=== PATIENT | male | born 1965 | race African-American/Black ===

== ENCOUNTER 2018-02-27 17:31 | Emergency (ER) | payer BC | END 2018-02-27 19:30 | disposition home or self-care (01) | LOC: ER 17:31 | DX: S46.911A Strain of unspecified muscle, fascia and tendon at shoulder and upper arm level, right arm, initial encounter (principal); E11.9 Type 2 diabetes mellitus without complications; I10 Essential (primary) hypertension; Z90.49 Acquired absence of other specified parts of digestive tract; W18.39XA Other fall on same level, initial encounter; Y93.89 Activity, other specified; Y92.89 Other specified places as the place of occurrence of the external cause; Y99.8 Other external cause status | CPT/HCPCS: 73060; 99284 ==

== ENCOUNTER → 2019-06-19 | Day surgery (SDC) | payer BC ==
[~2019-06-19] MED LIST: DULA0.75 SQ; GLIP5TAB10 PO; HYDROmorphone 2 MG/ML VIAL IV PRN; IV RINGERS,LACTATED 1000ML 1,000 ML IV SCH; LISI-130 PO; METF10007 PO; MORPHINE SULFATE 2 MG/ML VIAL. IV PRN; ONDANSETRON PF 4 MG/2 ML VIAL. IV PRN; PROCHLORPERAZINE 10 MG/2 ML VIAL. IV PRN; PROPOFOL 20 ML IV ONE; fentaNYL PF VIAL 100 MCG/2 ML VIAL IV PRN
[2019-06-19 08:42] VITALS: BP 146/68
--- NOTE | 2019-06-19 19:14 | CONS ---
DATE OF CONSULTATION: 06/19/2019 REFERRING PHYSICIAN: RACIEL Velásquez HISTORY OF PRESENT ILLNESS: A 53-year-old -Al[place]ian male, whose past medical history is significant for hypertension and diabetes, is seen for screening colon exam. Bowel habits are regular without diarrhea or constipation. There has been no melena and/or hematochezia. Weight and appetite are stable. He is otherwise without additional complaints. PAST MEDICAL HISTORY: Diabetes, hypertension. ALLERGIES: None. MEDICATIONS: Trulicity, glipizide, lisinopril, metformin. SOCIAL HISTORY: He is . He works at [employer]. FAMILY HISTORY: Unknown. He is adopted. PAST SURGICAL HISTORY: Significant for abdominal cellulitis. He is a nonsmoker, social drinker. REVIEW OF SYSTEMS: HEENT: There is no decrease in hearing or visual acuity issues. CARDIAC: History of hypertension. PULMONARY: No shortness of breath, productive cough, or asthma. RENAL: No dysuria, frequency, or hematuria. MUSCULOSKELETAL: No osteoarthrosis, arthralgias, or myalgias. ENDOCRINE: History of diabetes. HEMATOLOGIC: No bleeding, bruising, or coagulopathy. GASTROINTESTINAL: See history of present illness. NEUROLOGIC: No stroke or migraine. PSYCHIATRIC: No mood swings, depression, or insomnia. DERMATOLOGIC: No skin rashes or pruritus. PHYSICAL EXAMINATION: GENERAL: Reveals a well-nourished, well-developed male, who is alert and cooperative, in no acute distress. VITAL SIGNS: Temperature 97.6, pulse 98, respirations 20. HEENT: Normocephalic, atraumatic head. Pupils and extraocular muscles are not tested. Sclerae anicteric. NECK: Supple. LUNGS: Clear. CARDIOVASCULAR: Reveals S1, S2 without S3, S4 or appreciable murmur. ABDOMEN: Soft abdomen, normal bowel sounds without appreciable hepatosplenomegaly. EXTREMITIES: Reveals no cyanosis, clubbing, or edema. IMPRESSION: Colorectal screening. Risks and benefits of procedure including risk of hemorrhage and perforation have been discussed. The patient is willing to proceed. I would like to thank Priscila Britt for allowing us to consult and participate in this patient's care. ELIZABETH HINTON MD DR: FARIBA/sherman JOB#: [id number] / [id number]
== END ==
LOC: ENDOS 07:21
PROVIDERS: ATTEND Internal Medicine Gastroenterology
DX: Z12.11 Encounter for screening for malignant neoplasm of colon (principal); K57.30 Diverticulosis of large intestine without perforation or abscess without bleeding; K64.0 First degree hemorrhoids; E11.9 Type 2 diabetes mellitus without complications; I10 Essential (primary) hypertension; Z72.89 Other problems related to lifestyle; Z79.84 Long term (current) use of oral hypoglycemic drugs
CPT/HCPCS: 45378; 82962; J2704

== ENCOUNTER 2019-08-20 09:30 | Day surgery (SDC) | payer BC ==
[~2019-08-20] VITALS: Ht 177.8 cm; Wt 100.7 kg
[~2019-08-20 09:30] MED LIST changes: +ACETAMINOPHEN 500 MG TABLET PO PRN; +BUPIVACAINE-EPI 0.25%-1:200000 MPF 30 ML VIAL. INJ ONE; +DEXAMETHASONE SOD PHOS 20 MG/5 ML VIAL. ONE; +DEXAMETHASONE SOD PHOS 4 MG/ML VIAL ONE; +LIDOCAINE 1% PF 2 ML VIAL. ID PRN; +LIDOCAINE 2% PF 5 ML VIAL. ONE; +MIDAZOLAM HCL/PF 2 MG/2 ML VIAL. ONE; +ONDANSETRON PF 4 MG/2 ML VIAL. ONE; +ROCURONIUM 50 MG/5 ML VIAL. ONE; +ceFAZolin 2GM PREMIX 2 GM/50 ML BAG IV ONE; +fentaNYL PF VIAL 100 MCG/2 ML VIAL ONE
[2019-08-20] MEDS ORDERED: INSULIN LISPRO 100 UNIT/ML 3ML VIAL for OP,RR ONLY. SQ PRN (10:15)
[2019-08-20] MEDS ORDERED: fentaNYL PF VIAL 100 MCG/2 ML VIAL ONE ×2 (10:54→12:47)
[2019-08-20] MEDS ORDERED: ROCURONIUM 50 MG/5 ML VIAL. ONE (11:30)
[2019-08-20] MEDS ORDERED: NEOSTIGMINE METHYLSULFATE 5 MG/5 ML SYRINGE. ONE (11:31)
[2019-08-20] MEDS ORDERED: KETOROLAC 30 MG/ML VIAL. ONE (11:32)
[2019-08-20] MEDS ORDERED: GLYCOPYRROLATE 1 MG/5 ML VIAL. ONE (11:32)
[2019-08-20] MEDS ORDERED: BUPIVACAINE MPF 0.5% 30 ML VIAL. ONE (12:20)
[2019-08-20] MEDS ORDERED: DEXAMETHASONE SOD PHOS 20 MG/5 ML VIAL. ONE (12:20)
[2019-08-20] MEDS ORDERED: EPINEPHrine 1 MG/ML VIAL ONE (12:21)
[2019-08-20] MEDS ORDERED: SEVOFLURANE > 120 MINUTES. IH ONE (12:50)
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
--- NOTE | 2019-08-20 13:28 | DISCH ---
DISCHARGE INSTRUCTIONS Condition on Discharge Condition on Discharge: Stable Activity After Discharge Activity Instructions for Disc: Avoid exertion Other activity instructions: no lifting more than 20 pounds for 2 weeks Diet after Discharge Diet after Discharge: Regular Wound Incision Care Other wound/incision instructi: May shower in 24 hours Contacting the DRGriselda after DC Call your doctor for: If your condition worsens Follow-Up Follow up with: Dr. Baxter in 2 weeks BRENTON BAXTER MD Aug 20, 2019 13:28
[2019-08-20] MEDS: fentaNYL PF VIAL 100 MCG/2 ML VIAL IV PRN ×2 (14:39→14:46)
[2019-08-20] MEDS ORDERED: oxyCODONE/APAP 5/325 1 TAB TABLET PO ONE (14:45)
[2019-08-20 15:02] VITALS: BP 168/86
== END 2019-08-20 15:30 ==
LOC: EDSEX → SURG 09:30
PROVIDERS: ATTEND Surgery
DX: K43.2 Incisional hernia without obstruction or gangrene (principal); Z79.899 Other long term (current) drug therapy
CPT/HCPCS: 49654; 82962; A7015; C1781; J0171; J0696; J1100; J1885; J2001; J2250; J2270; J2405; J2704; J2710; J3010; J3490

== ENCOUNTER 2019-09-05 08:10 | Emergency (ER) | payer BC ==
[~2019-09-05] VITALS: Ht 180.3 cm; Wt 98.9 kg
[~2019-09-05 08:10] MED LIST changes: -ACETAMINOPHEN 500 MG TABLET PO PRN; -BUPIVACAINE-EPI 0.25%-1:200000 MPF 30 ML VIAL. INJ ONE; -DEXAMETHASONE SOD PHOS 20 MG/5 ML VIAL. ONE; -DEXAMETHASONE SOD PHOS 4 MG/ML VIAL ONE; -HYDROmorphone 2 MG/ML VIAL IV PRN; -IV RINGERS,LACTATED 1000ML 1,000 ML IV SCH; -LIDOCAINE 1% PF 2 ML VIAL. ID PRN; -LIDOCAINE 2% PF 5 ML VIAL. ONE; -MIDAZOLAM HCL/PF 2 MG/2 ML VIAL. ONE; -MORPHINE SULFATE 2 MG/ML VIAL. IV PRN; -ONDANSETRON PF 4 MG/2 ML VIAL. IV PRN; -ONDANSETRON PF 4 MG/2 ML VIAL. ONE; -PROCHLORPERAZINE 10 MG/2 ML VIAL. IV PRN; -PROPOFOL 20 ML IV ONE; -ROCURONIUM 50 MG/5 ML VIAL. ONE; -ceFAZolin 2GM PREMIX 2 GM/50 ML BAG IV ONE; -fentaNYL PF VIAL 100 MCG/2 ML VIAL IV PRN; -fentaNYL PF VIAL 100 MCG/2 ML VIAL ONE
[2019-09-05] MEDS: diphenhydrAMINE 50 MG/ML VIAL IV ONE (08:20)
[2019-09-05] MEDS: FAMOTIDINE 20 MG/2 ML VIAL IVP ONE (08:22)
[2019-09-05] MEDS: methylPREDNISolone SOD SUCC PF 125 MG/2 ML VIAL. IV ONE (08:25)
[2019-09-05] MEDS: IV NORMAL SALINE 500ML BAG 500 ML IV ONE (08:26)
--- NOTE | 2019-09-05 08:41 | PHYS DOC ---
Past Medical History Past Medical History: Diabetes-Type II, Hypertension Past Surgical History: Other Additional Past Surgical Histo: colectomy, HERNIA Alcohol Use: Occasionally Drug Use: None Adult General Chief Complaint Chief Complaint: ALLERGIC REACTION HPI HPI Patient is a 53 year old male who presents with complaining of tongue swelling. Patient states he woke up about an hour ago and had left side of his tongue edema without shortness of breath, swallowing problem, rash, fever and chills, focal neuro deficit, history of the same problem. Patient denies using new medication or food. Patient currently taking lisinopril 40 mg daily for the last years without problem. Review of Systems Review of Systems Constitutional: Denies fever or chills [] Eyes: Denies change in visual acuity, redness, or eye pain [] HENT: Denies nasal congestion or sore throat [] Respiratory: Denies cough or shortness of breath [] Cardiovascular: No additional information not addressed in HPI [] GI: Denies abdominal pain, nausea, vomiting, bloody stools or diarrhea [] : Denies dysuria or hematuria [] Musculoskeletal: Denies back pain or joint pain [] Integument: Denies rash or skin lesions [] Neurologic: Denies headache, focal weakness or sensory changes [] Endocrine: Denies polyuria or polydipsia [] All other systems were reviewed and found to be within normal limits, except as documented in this note. Current Medications Current Medications Current Medications Medications (Trade) Dose Ordered Sig/Abram Start Time Stop Time Status Last Admin Dose Admin Diphenhydramine HCl (Benadryl) 50 mg 1X ONCE 09/05/19 08:30 09/05/19 08:31 DC 09/05/19 08:20 50 MG Famotidine (Pepcid Vial) 20 mg 1X ONCE 09/05/19 08:30 09/05/19 08:31 DC 09/05/19 08:22 20 MG Methylprednisolone Sodium Succinate (SOLU-Medrol 125MG VIAL) 125 mg 1X ONCE 09/05/19 08:30 09/05/19 08:31 DC 09/05/19 08:25 125 MG Sodium Chloride 500 ml @ 500 mls/hr 1X ONCE 09/05/19 08:30 09/05/19 09:29 DC 09/05/19 08:26 500 MLS/HR Allergies Allergies Allergies Coded Allergies Type Severity Reaction Last Updated Verified No Known Drug Allergies 08/18/19 No Physical Exam Physical Exam Constitutional: Well developed, well nourished, mild distress, non-toxic appearance. [] HENT: Normocephalic, atraumatic, bilateral external ears normal, oropharynx moist, mild edema left side of lower lip, left tongue moderate edema, no uvular edema, no oral exudates, nose normal. [] Eyes: PERRLA, EOMI, conjunctiva normal, no discharge. [] Neck: Normal range of motion, no tenderness, supple, no stridor. [] Cardiovascular:Heart rate regular rhythm, no murmur [] Lungs & Thorax: Bilateral breath sounds clear to auscultation [] Skin: Warm, dry, no erythema, no rash. [] Back: No tenderness, no CVA tenderness. [] Extremities: ROM intact, no edema. [] Neurologic: Alert and oriented X 3, no focal deficits noted. [] Psychologic: Affect normal, judgement normal, mood normal. [] Current Patient Data Vital Signs Vital Signs Date Time Temp Pulse Resp B/P (MAP) Pulse Ox O2 Delivery O2 Flow Rate FiO2 09/05/19 09:30 100 135/78 (97) 99 09/05/19 09:02 18 Room Air 09/05/19 08:21 99.4 99.4 Lab Values Laboratory Tests Test 09/05/19 08:21 White Blood Count 7.8 x10^3/uL (4.0-11.0) Red Blood Count 4.51 x10^6/uL (4.30-5.70) Hemoglobin 13.9 g/dL (13.0-17.5) Hematocrit 40.1 % (39.0-53.0) Mean Corpuscular Volume 89 fL (79-100) Mean Corpuscular Hemoglobin 31 pg (25-35) Mean Corpuscular Hemoglobin Concent 35 g/dL (31-37) Red Cell Distribution Width 12.5 % (11.5-14.5) Platelet Count 282 x10^3/uL (140-400) Neutrophils (%) (Auto) 50 % (31-73) Lymphocytes (%) (Auto) 35 % (24-48) Monocytes (%) (Auto) 12 % (0-9) H Eosinophils (%) (Auto) 3 % (0-3) Basophils (%) (Auto) 1 % (0-3) Neutrophils # (Auto) 3.9 x10^3/uL (1.8-7.7) Lymphocytes # (Auto) 2.7 x10^3/uL (1.0-4.8) Monocytes # (Auto) 0.9 x10^3/uL (0.0-1.1) Eosinophils # (Auto) 0.2 x10^3/uL (0.0-0.7) Basophils # (Auto) 0.0 x10^3/uL (0.0-0.2) Sodium Level 139 mmol/L (136-145) Potassium Level 4.3 mmol/L (3.5-5.1) Chloride Level 100 mmol/L (98-107) Carbon Dioxide Level 29 mmol/L (21-32) Anion Gap 10 (6-14) Blood Urea Nitrogen 16 mg/dL (8-26) Creatinine 1.0 mg/dL (0.7-1.3) Estimated GFR (Cockcroft-Gault) 94.6 BUN/Creatinine Ratio 16 (6-20) Glucose Level 172 mg/dL (70-99) H Calcium Level 9.3 mg/dL (8.5-10.1) Total Bilirubin 0.3 mg/dL (0.2-1.0) Aspartate Amino Transferase (AST) 14 U/L (15-37) L Alanine Aminotransferase (ALT) 31 U/L (16-63) Alkaline Phosphatase 97 U/L (46-116) Total Protein 7.5 g/dL (6.4-8.2) Albumin 3.6 g/dL (3.4-5.0) Albumin/Globulin Ratio 0.9 (1.0-1.7) L Laboratory Tests 09/05/19 08:21 Laboratory Tests 09/05/19 08:21 EKG EKG [] Radiology/Procedures Radiology/Procedures [] Course & Med Decision Making Course & Med Decision Making Pertinent Labs reviewed. (See chart for details) Evaluation of patient in ER showed 53-year-old male patient with angioedema without shortness of breath or problems swallowing and history of using lis inopril for several years. Patient treated with IV fluid, Benadryl, Pepcid and Solu-Medrol with partial improvement of his condition. Patient had a stable vital signs and O2 sat. Labs was unremarkable except for mild elevation of blood sugar of 172. Patient was advised to stop taking lisinopril and prescription for amlodipine and hydroxyzine was given. I've spoken with the patient and/or caregivers. I've explained the patient's condition, diagnosis and treatment plan based on information available to me at this time. I've answered the patient's and/or caregivers questions and addressed any concerns. The patient and/or caregivers have a good understanding the patient's diagnosis, condition and treatment plan as can be expected at this point. Vital signs have been stabilized. The patient's condition is stable for discharge from the emergency department. The patient will pursue further outpatient evaluation with her primary care provider or other designated consulting physician as outlined in the discharge instructions. Patient and/or caregivers are agreeable to this plan of care and follow-up instructions have been explained in detail. The patient and/or caregivers have received these instructions in written format and expressed understanding of these discharge instructions. The patient and her caregivers are aware that if any significant change in condition or worsening of symptoms should prompt him to immediately return to this of the closest emergency de partment. If an emergent department is not readily available I would encourage him to call 911. Jhonon Disclaimer Dragon Disclaimer This electronic medical record was generated, in whole or in part, using a voice recognition dictation system. Departure Departure Impression: Primary Impression: NEELIMA inhibitor-aggravated angioedema Disposition: HOME, SELF-CARE (at 0 [phone]) Condition: IMPROVED Referrals: VICTORINO PLATA APRN (PCP) Patient Instructions: Angioedema Additional Instructions: Stop taking lisinopril Follow-up with your primary care physician in 3-5 days Return to ER if not getting better Scripts Amlodipine Besylate (AMLODIPINE BESYLATE) 10 Mg Tablet 10 MG PO DAILY for 30 Days, #30 TAB Prov: DEWAYNE DAY MD 09/05/19 Hydroxyzine Hcl (HYDROXYZINE HCL) 25 Mg Tablet 1 TAB PO TID PRN for itching, #30 TAB Prov: DEWAYNE DAY MD 09/05/19 Problem Qualifiers Primary Impression: NEELIMA inhibitor-aggravated angioedema Encounter type: initial encounter Qualified Codes: T78.3XXA - Angioneurotic edema, initial encounter; T46.4X5A - Adverse effect of wxgovdusnpd-oejnvqgoyz-rimjho inhibitors, initial encounter DEWAYNE DAY MD Sep 05, 2019 08:41
[2019-09-05 08:45] LABS: BASO % 1 % (0-3); EOS # 0.2 x10^3/uL (0.0-0.7); EOS % 3 % (0-3); HEMATOCRIT 40.1 % (39.0-53.0); HEMOGLOBIN 13.9 g/dL (13.0-17.5); LYMPH # 2.7 x10^3/uL (1.0-4.8); LYMPH % 35 % (24-48); MEAN CORPUSCULAR HEMOGLOBIN 31 pg (25-35); MEAN CORPUSCULAR HGB CONC 35 g/dL (31-37); MEAN CORPUSCULAR VOLUME 89 fL (79-100); MONO # 0.9 x10^3/uL (0.0-1.1); MONO % 12 % (0-9); NEUT # 3.9 x10^3/uL (1.8-7.7); NEUT % 50 % (31-73); PLATELET COUNT 282 x10^3/uL (140-400); RED BLOOD COUNT 4.51 x10^6/uL (4.30-5.70); RED CELL DISTRIBUTION WIDTH 12.5 % (11.5-14.5); WHITE BLOOD COUNT 7.8 x10^3/uL (4.0-11.0)
[2019-09-05 08:51] LABS: CALCIUM 9.3 mg/dL (8.5-10.1); GFR 94.6; POTASSIUM 4.3 mmol/L (3.5-5.1)
[2019-09-05 08:56] LABS: ALBUMIN 3.6 g/dL (3.4-5.0); ALBUMIN/GLOBULIN RATIO 0.9 (1.0-1.7); TOTAL BILIRUBIN 0.3 mg/dL (0.2-1.0); TOTAL PROTEIN 7.5 g/dL (6.4-8.2)
[2019-09-05 09:30] VITALS: BP 135/78
[2019-09-05] MEDS ORDERED: AMLO10TA8 PO (09:36)
[2019-09-05] MEDS ORDERED: HYDR25TA PO (09:36)
[2019-09-05] MEDS ORDERED: FAMOTIDINE 20 MG/2 ML VIAL ONE (15:04)
[2019-09-05] MEDS ORDERED: methylPREDNISolone SOD SUCC PF 125 MG/2 ML VIAL. ONE (15:04)
[2019-09-05] MEDS ORDERED: diphenhydrAMINE 50 MG/ML VIAL ONE (15:04)
== END 2019-09-05 09:40 | disposition home or self-care (01) ==
LOC: ER 08:10
DX: T78.3XXA Angioneurotic edema, initial encounter (principal); T46.4X5A Adverse effect of angiotensin-converting-enzyme inhibitors, initial encounter; E11.9 Type 2 diabetes mellitus without complications; I10 Essential (primary) hypertension; Z90.49 Acquired absence of other specified parts of digestive tract; Z98.890 Other specified postprocedural states; Y65.8 Other specified misadventures during surgical and medical care; Y92.89 Other specified places as the place of occurrence of the external cause
CPT/HCPCS: 36415; 80053; 85025; 96374; 96375; J1200; J2930; J3490; J7040; 99284-25

== ENCOUNTER → 2019-12-10 | Outpatient (CLI) | payer BC ==
[~2019-12-10] MED LIST changes: +AMLO10TA8 PO; +HYDR25TA PO
--- NOTE | 2019-12-11 08:19 | CARD ---
MR#: [id number] Date of Study: 12/10/2019 Ordering Physician: MARISOL WISE, Referring Physician: MARISOL WISE, Tech: Tracey Summers APPROVED REPORT EXAM: Two-dimensional and M-mode echocardiogram with Doppler and color Doppler. Other Information Quality : AverageHR: 85bpm INDICATION Murmur RISK FACTORS Hypertension Diabetes 2D DIMENSIONS RVDd3.7 (2.9-3.5cm)Left Atrium(2D)4.1 (1.6-4.0cm) IVSd1.2 (0.7-1.1cm)Aortic Root(2D)3.1 (2.0-3.7cm) LVDd5.4 (3.9-5.9cm)LVOT Diameter2.1 (1.8-2.4cm) PWd1.1 (0.7-1.1cm)LVDs4.4 (2.5-4.0cm) FS (%) 17.6 %SV50.4 ml LVEF(%)36.3 (>50%) Aortic Valve AoV Peak Pardeep.197.5cm/sAoV VTI38.4cm AO Peak GR.15.6mmHgLVOT Peak Pardeep.90.1cm/s LVOT VTI 18.13cmAO Mean GR.9mmHg ALEXSANDER (VMAX)1.37zb2AYR (VTI)1.68cm2 Mitral Valve MV E Bcwckmnk86.2cm/sMV DECEL KBDY125fg MV A Zhfdkpwg15.9cm/sMV E Mean Gr.3mmHg MV GMW20zjE/A Ratio1.3 MVA (PHT)4.22cm2 TDI E/Lateral E'8.8E/Medial E'13.3 Pulmonary Valve PV Peak Mphndksq900.1cm/sPV Peak Grad.4mmHg Tricuspid Valve TR P. Lfhsqfue733uy/sRAP HMUDKKBC3knIn TR Peak Gr.21veIvMFCB33ulSl Pulmonary Vein S1 Ufzrpcgd37.6cm/sD2 Cbpmjjae86.8cm/s LEFT VENTRICLE The left ventricle is normal size. There is mild concentric left ventricular hypertrophy. The left ve ntricular systolic function is normal. The Ejection Fraction is 50-55%. There is normal LV segmental wall motion. RIGHT VENTRICLE The right ventricle is normal size. There is normal right ventricular wall thickness. The right ventr icular systolic function is normal. ATRIA The left atrium size is normal. The right atrium size is normal. The interatrial septum is intact wit h no evidence for an atrial septal defect or patent foramen ovale as noted on 2-D or Doppler imaging. AORTIC VALVE The aortic valve is calcified but opens well. Doppler and Color Flow revealed trace aortic regurgitat ion. Calculated aortic valve area is 2.02 cm2 with maximum pressure gradient of 20 mmHg and mean pres sure gradient of 10 mmHg. MITRAL VALVE The mitral valve is normal in structure and function. There is no evidence of mitral valve prolapse. There is no mitral valve stenosis. Doppler and Color Flow revealed no mitral valve regurgitation note d. TRICUSPID VALVE The tricuspid valve is normal in structure and function. Doppler and Color Flow revealed trace tricus pid regurgitation with an estimated PAP of 31 mmHg. There is no tricuspid valve stenosis. PULMONIC VALVE The pulmonic valve is not well visualized. Doppler and Color Flow revealed trace pulmonic valvular re gurgitation. GREAT VESSELS The aortic root is normal in size. The IVC was not visualized. PERICARDIAL EFFUSION There is no evidence of significant pericardial effusion. Critical Notification Critical Value: No <Conclusion> The left ventricular systolic function is normal. The Ejection Fraction is 50-55%. There is normal LV segmental wall motion. Trace tricuspid regurgitation with an estimated PAP of 31 mmHg. There is no evidence of significant pericardial effusion. Signed by : Shaun Her, Electronically Approved : 12/11/2019 08:18:26
== END | disposition home or self-care (01) ==
LOC: ECHO 15:19
PROVIDERS: ATTEND Internal Medicine Cardiovascular Disease
DX: I35.8 Other nonrheumatic aortic valve disorders (principal); I51.7 Cardiomegaly
CPT/HCPCS: 93306

== ENCOUNTER 2021-01-05 17:31 | Emergency (ER) | payer OTHER, BC ==
[~2021-01-05] VITALS: Ht 180.3 cm; Wt 105.0 kg
[~2021-01-05 17:31] MED LIST changes: +AMLO-187 PO; -AMLO10TA8 PO
[2021-01-05 18:00] VITALS: BP 167/89
[2021-01-05] MEDS ORDERED: LIDOCAINE/EPI/TETRACAINE TOPICAL GEL 3 ML. TP ONE (18:00)
[2021-01-05] MEDS ORDERED: DIPH,PERTUSS(ACELL),TET VAC/PF 0.5 ML SYRINGE. VAX IM ONE (18:30)
--- NOTE | 2021-01-05 18:51 | PHYS DOC ---
Past Medical History Past Medical History: Diabetes-Type II, Hypertension Past Surgical History: Other Additional Past Surgical Histo: colectomy, HERNIA Smoking Status: Never Smoker Alcohol Use: Occasionally Drug Use: None General Adult EDM: Chief Complaint: HEAD INJURY/TRAUMA HPI: HPI: Patient is a 55 year old male who presents with scalp laceration. 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 He states he hit his head on a metal cabinet above his head. Denies any loss of consciousness. He denies any neck pain. Review of Systems: Review of Systems: Constitutional: Denies fever or chills. [] Eyes: Denies change in visual acuity. [] HENT: Denies nasal congestion or sore throat. [] Respiratory: Denies cough or shortness of breath. [] Cardiovascular: Denies chest pain or edema. [] GI: Denies abdominal pain, nausea, vomiting, bloody stools or diarrhea. [] : Denies dysuria. [] Musculoskeletal: Denies back pain or joint pain. [] Integument: Reports scalp laceration Neurologic: Denies headache, focal weakness or sensory changes. [] Psychiatric: Denies depression or anxiety. [] Heart Score: Risk Factors: Risk Factors: DM, Current or recent (<one month) smoker, HTN, HLP, family history of CAD, obesity. Risk Scores: Score 0 - 3: 2.5% MACE over next 6 weeks - Discharge Home Score 4 - 6: 20.3% MACE over next 6 weeks - Admit for Clinical Observation Score 7 - 10: 72.7% MACE over next 6 weeks - Early Invasive Strategies Current Medications: Current Medications Medications (Trade) Dose Ordered Sig/Abram Start Time Stop Time Status Last Admin Dose Admin Diphtheria/ Tetanus/Acell Pertussis (ADACEL TDap SYRINGE) 0.5 ml ONCE ONCE 01/05/21 18:30 01/05/21 18:31 DC 01/05/21 18:34 0.5 ML Tetracaine/ Epinephrine/ Lidocaine (Let (Jgqy-Tkevhci-Mdmev) Gel) 3 ml 1X ONCE 01/05/21 18:00 01/05/21 18:01 DC 01/05/21 18:06 3 ML Allergies: Allergies: Allergies Coded Allergies Type Severity Reaction Last Updated Verified No Known Drug Allergies 08/18/19 No Physical Exam: PE: Constitutional: Well developed, well nourished, no acute distress, non-toxic appearance. [] HENT: Normocephalic, atraumatic, bilateral external ears normal, oropharynx moist, no oral exudates, nose normal. [] Eyes: PERRLA, EOMI, conjunctiva normal, no discharge. [] Neck: Normal range of motion, no tenderness, supple, no stridor. [] Cardiovascular:Heart rate regular rhythm, no murmur [] Lungs & Thorax: Bilateral breath sounds clear to auscultation [] Abdomen: Bowel sounds normal, soft, no tenderness, no masses, no pulsatile masses. [] Skin: Right forehead with a laceration approximately 3 cm long. Back: No tenderness, no CVA tenderness. [] Extremities: No tenderness, no cyanosis, no clubbing, ROM intact, no edema. [] Neurologic: Alert and oriented X 3, normal motor function, normal sensory function, no focal deficits noted. Cranial nerves II through XII intact Psychologic: Affect normal, judgement normal, mood normal. [] Current Patient Data: Vital Signs: Vital Signs Date Time Temp Pulse Resp B/P (MAP) Pulse Ox O2 Delivery O2 Flow Rate FiO2 01/05/21 18:00 97.7 89 18 167/89 (115) 99 Room Air 97.7 EKG: EKG: [] Radiology/Procedures: Radiology/Procedures: Laceration/Wound Repair Laceration/Wound Repair : [] Wound Location: Right forehead laceration Wound's Depth, Shape: V Wound Length (cm): Approximately 2 cm Wound Explored: clean Irrigated w/ Saline (ccs): 20 Betadine Prep?: Not applicable Anesthesia: Let solution Volume Anesthetic (ccs): 3 cc Wound Repaired With: 4 kaleigh Progress wound was left open to back Course & Med Decision Making: Course & Med Decision Making Pertinent Labs and Imaging studies reviewed. (See chart for details) This is a 55-year-old male patient presenting to the ED today with scalp laceration that was closed with 4 kaleigh by me. Wound care instructions and return precautions provided. Tetanus updated in the ED. Eugenia Disclaimer: Eugenia Disclaimer: This electronic medical record was generated, in whole or in part, using a voice recognition dictation system. Departure Departure Impression: Primary Impression: Laceration of scalp Qualified Codes: S01.01XA - Laceration without foreign body of scalp, initial encounter Disposition: 01 DC HOME SELF CARE/HOMELESS Condition: STABLE Referrals: JAZMIN SOTOMAYOR MD (PCP) Follow-up with the ED or your own doctor in 7 to 10 days for staple removal Patient Instructions: Laceration Care, Adult, Xvsh-lf-Lqgl Additional Instructions: You have scalp laceration that was closed with kaleigh. You can shower and wash your hair including the laceration site starting tomorrow. Please apply Neosporin over the laceration site twice a day for 1 week. Come back to the ED or see your own doctor in 7 to 10 days for staple removal. Monitor the area for signs of infection including but not limited to increased redness, warmth, yellow drainage from the area and return to the ED if they occur KOBY CRUZ APRN Jan 05, 2021 18:51
== END 2021-01-05 19:10 | disposition home or self-care (01) ==
LOC: ER 17:31
DX: S01.01XA Laceration without foreign body of scalp, initial encounter (principal); E11.9 Type 2 diabetes mellitus without complications; I10 Essential (primary) hypertension; W22.09XA Striking against other stationary object, initial encounter; Y93.89 Activity, other specified; Y92.89 Other specified places as the place of occurrence of the external cause; Y99.8 Other external cause status
CPT/HCPCS: 12013; 90471; 90715; 99283

== ENCOUNTER 2021-01-13 16:20 | Emergency (ER) | payer OTHER, BC ==
[~2021-01-13] VITALS: Ht 180.3 cm; Wt 100.0 kg
[2021-01-13 16:46] VITALS: BP 160/87
--- NOTE | 2021-01-13 16:52 | PHYS DOC ---
Past Medical History Past Medical History: Diabetes-Type II, Hypertension Past Surgical History: Other Additional Past Surgical Histo: colectomy, HERNIA Smoking Status: Never Smoker Alcohol Use: Occasionally Drug Use: None General Adult EDM: Chief Complaint: SUTURE/STAPLE REMOVAL HPI: HPI: Patient is a 55 year old male who presents with on January 05 patient was at work when he had his head on a metal cabinet causing him a laceration to his right upper forehead scalp area. He received 4 efrain. Patient is here today for staple removal. He has a history of diabetes, hypertension, hernia, colectomy. He denies any pain, drainage from the incision or signs of in fection. Review of Systems: Review of Systems: Constitutional: Denies fever or chills. [] Eyes: Denies change in visual acuity. [] HENT: Denies nasal congestion or sore throat. [] Respiratory: Denies cough or shortness of breath. [] Cardiovascular: Denies chest pain or edema. [] GI: Denies abdominal pain, nausea, vomiting, bloody stools or diarrhea. [] : Denies dysuria. [] Musculoskeletal: Denies back pain or joint pain. [] Integument: Denies rash. +Efrain to healing right forehead laceration [] Neurologic: Denies headache, focal weakness or sensory changes. [] Endocrine: Denies polyuria or polydipsia. [] Lymphatic: Denies swollen glands. [] Psychiatric: Denies depression or anxiety. [] Heart Score: Risk Factors: Risk Factors: DM, Current or recent (<one month) smoker, HTN, HLP, family history of CAD, obesity. Risk Scores: Score 0 - 3: 2.5% MACE over next 6 weeks - Discharge Home Score 4 - 6: 20.3% MACE over next 6 weeks - Admit for Clinical Observation Score 7 - 10: 72.7% MACE over next 6 weeks - Early Invasive Strategies Allergies: Allergies: Allergies Coded Allergies Type Severity Reaction Last Updated Verified No Known Drug Allergies 08/18/19 No Physical Exam: PE: Constitutional: Well developed, well nourished, no acute distress, non-toxic appearance. [] HENT: Normocephalic, atraumatic, bilateral external ears normal, oropharynx moist, no oral exudates, nose normal. [] Eyes: PERRLA, EOMI, conjunctiva normal, no discharge. [] Neck: Normal range of motion, no tenderness, supple, no stridor. [] Cardiovascular:Heart rate regular rhythm, no murmur [] Lungs & Thorax: Bilateral breath sounds clear to auscultation [] Abdomen: Bowel sounds normal, soft, no tenderness, no masses, no pulsatile masses. [] Skin: Warm, dry, no erythema, no rash. Healed right forehead scalp laceration that is scabbed over [] Back: No tenderness, no CVA tenderness. [] Extremities: No tenderness, no cyanosis, no clubbing, ROM intact, no edema. [] Neurologic: Alert and oriented X 3, normal motor function, normal sensory function, no focal deficits noted. [] Psychologic: Affect normal, judgement normal, mood normal. [] EKG: EKG: [] Radiology/Procedures: Radiology/Procedures: [] Course & Med Decision Making: Course & Med Decision Making Pertinent Labs and Imaging studies reviewed. (See chart for details) See HPI. Alert and oriented x4. Speaks in full complete sentences. Skin pink warm and dry. Edges are approximated and healed together. There is no signs of infection. No drainage, redness, tenderness, swelling. He is afebrile. 4 efrain removed from scalp by RN. [] Eugenia Disclaimer: Eugenia Disclaimer: This electronic medical record was generated, in whole or in part, using a voice recognition dictation system. Departure Departure Impression: Primary Impression: Visit for suture removal Disposition: 01 [place] HOME SELF CARE/HOMELESS Condition: STABLE Referrals: JAZMIN SOTOMAYOR MD (PCP) Patient Instructions: Suture Removal Additional Instructions: Follow-up with a primary care provider if needed. Can use Neosporin on antibiotic ointment over the area to help healing. YEN ROMERO APRN Jan 13, 2021 16:52
== END 2021-01-13 17:05 | disposition home or self-care (01) ==
LOC: ER 16:20
DX: S01.01XD Laceration without foreign body of scalp, subsequent encounter (principal); E11.9 Type 2 diabetes mellitus without complications; I10 Essential (primary) hypertension; X58.XXXD Exposure to other specified factors, subsequent encounter
CPT/HCPCS: 99281

== ENCOUNTER 2021-05-22 17:39 | Emergency (ER) | payer BC, OTHER ==
[~2021-05-22] VITALS: Ht 180.3 cm; Wt 105.0 kg
--- NOTE | 2021-05-22 18:56 | PHYS DOC ---
Past Medical History Past Medical History: Diabetes-Type II, Hypertension Past Surgical History: No Surgical History, Other Additional Past Surgical Histo: ABDOMINAL RESECTION Smoking Status: Never Smoker Alcohol Use: Occasionally Drug Use: None General Adult EDM: Chief Complaint: DIZZY/LIGHT HEADED HPI: HPI: Patient is a 55 year old male with a past medical history of hypertension and diabetes presents with a chief complaint of dizziness. Patient states dizziness started this evening while he was driving to work. Patient describes the dizziness as a sensation of his head feeling up with air. Noé was intensified when patient was up working and improved sitting down. Patient denied any associated headache visual changes nausea vomiting chest pain or shortness of breath. On exam patient is alert and orders x4. And he has no neurological deficits. Review of Systems: Review of Systems: Review of systems: Constitutional symptoms- No fever, no chills. Eyes- No Discharge, No Visual Loss Respiratory symptoms- No shortness of breath, No wheezing, No Dyspnea on Exertion Cardiovascular Systems; No chest pain, No Palpitations, No syncope Gastrointestinal symptoms: NO abdominal pain, no nausea, no vomiting or diarrhea. Genitourinary symptoms: No dysuria. Musculoskeletal symptoms: No back pain No extremity pain. NEUROLOGICAL Symptoms: No headache, no generalized weakness; No focal Weakness Skin: No rash. Heart Score: C/O Chest Pain: N/A Risk Factors: Risk Factors: DM, Current or recent (<one month) smoker, HTN, HLP, family history of CAD, obesity. Risk Scores: Score 0 - 3: 2.5% MACE over next 6 weeks - Discharge Home Score 4 - 6: 20.3% MACE over next 6 weeks - Admit for Clinical Observation Score 7 - 10: 72.7% MACE over next 6 weeks - Early Invasive Strategies Allergies: Allergies: Allergies Coded Allergies Type Severity Reaction Last Updated Verified No Known Drug Allergies 08/18/19 No Physical Exam: PE: General: alert, no acute distress. Skin: warm, dry and intact. HENT: bilateral external ears normal, oropharynx moist, nose normal. Head:: Normocephalic, atraumatic. Neck: Trachea midline. Eyes: EOMI, Normal conjunctiva, No drainage CARDIOVASCULAR: Regular rate and rhythm RESPIRATORY: No respiratory distress Back: Full range of motion. Skin: Warm, dry, no erythema, no rash. MUSCULOSKELETAL: Full range of motion of bilateral upper and lower extremities. GASTROINTESTINAL: Abdomen soft without rebound or guarding. NEUROLOGICAL: Alert and noted to person, place and time. No neurological deficits observed Psychiatric: Cooperative. Normal judgment Current Patient Data: Vital Signs: Vital Signs Date Time Temp Pulse Resp B/P (MAP) Pulse Ox O2 Delivery O2 Flow Rate FiO2 05/22/21 17:41 98.5 102 16 212/96 (134) 96 Room Air 98.5 EKG: EKG: Performed at 1849 Rate 95 Normal sinus rhythm No ST elevation No ST depression No acute [place] [] Radiology/Procedures: Radiology/Procedures: [] Course & Med Decision Making: Course & Med Decision Making Pertinent Labs and Imaging studies reviewed. (See chart for details) []Treated with IV fluids. Ambulated after treatment-- no complaints. Patient discharged home. Dragon Disclaimer: Eugenia Disclaimer: This electronic medical record was generated, in whole or in part, using a voice recognition dictation system. Departure Departure Impression: Primary Impression: Dizziness Disposition: 01 HOME / SELF CARE / HOMELESS Condition: STABLE Referrals: JAZMIN SOTOMAYOR MD (PCP) Patient Instructions: SILVER Pate DO May 22, 2021 18:56
[2021-05-22] MEDS ORDERED: IV NORMAL SALINE 1000ML BAG 1,000 ML IV ONE (19:15)
[2021-05-22 19:30] LABS: BASO # 0.1 x10^3/uL (0.0-0.2); BASO % 1 % (0-3); EOS # 0.1 x10^3/uL (0.0-0.7); EOS % 1 % (0-3); HEMATOCRIT 42.7 % (39.0-53.0); HEMOGLOBIN 14.6 g/dL (13.0-17.5); LYMPH % 31 % (24-48); MEAN CORPUSCULAR HEMOGLOBIN 31 pg (25-35); MEAN CORPUSCULAR HGB CONC 34 g/dL (31-37); MEAN CORPUSCULAR VOLUME 90 fL (79-100); MONO # 0.6 x10^3/uL (0.0-1.1); MONO % 9 % (0-9); NEUT # 3.7 x10^3/uL (1.8-7.7); NEUT % 58 % (31-73); PLATELET COUNT 197 x10^3/uL (140-400); RED BLOOD COUNT 4.76 x10^6/uL (4.30-5.70); RED CELL DISTRIBUTION WIDTH 13.3 % (11.5-14.5); WHITE BLOOD COUNT 6.4 x10^3/uL (4.0-11.0)
[2021-05-22 19:35] LABS: CREATININE 0.9 mg/dL (0.7-1.3)
--- NOTE | 2021-05-22 19:35 | EKG ---
[facility] [address] [place] [address] Test Date: 2021-05-22 Test Time: 18:49:11 Pat Name: JAJA DUBOIS Department: Room: Gender: M Manager Animal: : [id number] Requested By: SILVER GARIBAY Order Number: [id number] Reading MD: Measurements Intervals [place] Rate: 95 P: 53 GA: 178 QRS: -17 QRSD: 82 T: -13 QT: 346 QTc: 438 Interpretive Statements SINUS RHYTHM LEFTWARD AXIS OTHERWISE NORMAL ECG RI6.02 No previous ECG available for comparison
[2021-05-22 19:41] LABS: ALBUMIN 4.5 g/dL (3.4-5.0); ALBUMIN/GLOBULIN RATIO 1.4 (1.0-1.7); TOTAL BILIRUBIN 0.4 mg/dL (0.2-1.0); TOTAL PROTEIN 7.7 g/dL (6.4-8.2)
[2021-05-22 20:47] VITALS: BP 162/77
== END 2021-05-22 21:28 | disposition home or self-care (01) ==
LOC: ER 17:39
DX: R42 Dizziness and giddiness (principal); E11.9 Type 2 diabetes mellitus without complications; I10 Essential (primary) hypertension
CPT/HCPCS: 36415; 80053; 82962; 84484; 85025; 93005; 96360; 99284; J7030